=== PATIENT | female | born 1995 | race Two or more races ===

== ENCOUNTER 2020-05-15 16:11 | Inpatient (IN) | payer OTHER ==
[~2020-05-15] VITALS: Ht 160 cm; Wt 90.7 kg
[2020-05-15] MEDS ORDERED: VALTREX1000 MG (18:38)
[2020-05-15] MEDS ORDERED: ZATEAN-PN DHA1 EACH (18:38)
[2020-05-15] MEDS ORDERED: CHILDREN'S ASPI81 MG (18:39)
[2020-05-18] MEDS ORDERED: DOCUSATE SODIU100 MG PO (07:34)
[2020-05-18] MEDS ORDERED: IBUPROFEN800 MG PO (07:34)
== END 2020-05-18 13:44 | disposition home or self-care (01) | DRG 807 ==
LOC: LDR 16:11 → OB/GYN 05-16 09:46
PROVIDERS: ADMIT Obstetrics & Gynecology; ATTEND Obstetrics & Gynecology
PROC: 10E0XZZ Delivery of Products of Conception, External Approach (ICD-10-PCS; principal; 2020-05-15)
PROC: 0KQM0ZZ Repair Perineum Muscle, Open Approach (ICD-10-PCS; 2020-05-15)
PROC: 10907ZC Drainage of Amniotic Fluid, Therapeutic from Products of Conception, Via Natural or Artificial Opening (ICD-10-PCS; 2020-05-15)
PROC: 3E0P7VZ Introduction of Hormone into Female Reproductive, Via Natural or Artificial Opening (ICD-10-PCS; 2020-05-15)
PROC: 4A1HXFZ Monitoring of Products of Conception, Cardiac Rhythm, External Approach (ICD-10-PCS; 2020-05-15)
DX: O70.1 Second degree perineal laceration during delivery (principal); Z37.0 Single live birth; Z3A.39 39 weeks gestation of pregnancy; Z20.822 Contact with and (suspected) exposure to COVID-19